=== PATIENT | male | born 1960 | race Caucasian/White ===

== ENCOUNTER 2022-10-25 17:48 | Emergency (ER) | payer BC, SELFPAY ==
[2022-10-25 17:56] VITALS: BP 159/83; PULSE 109; RESP 18; TEMP 38.3; O2SAT 95; BMI 31.4
--- NOTE | 2022-10-25 18:48 | DI.RAD.S_ITS ---
PROCEDURE: XR CHEST 2V INDICATIONS: congestion, fever TECHNIQUE: 2 views of the chest were acquired. COMPARISON: None. FINDINGS: Surgical changes and devices: None. Lungs and pleura: No consolidation identified. No pleural effusions or pneumothorax. Mediastinum: Mediastinal contours are normal. Heart size is normal. Bones and chest wall: No suspicious bony abnormalities. Soft tissues appear unremarkable. IMPRESSION: No acute cardiopulmonary abnormality identified. Dictated by: Davon August M.D. on 10/25/2022 at 19:43 Approved by: Davon August M.D. on 10/25/2022 at 19:43
--- NOTE | 2022-10-25 18:50 | ED_ITS ---
HPI - URI/Sore Throat <CIARRA Sommers Last Filed: 10/25/22 19:56> General Chief Complaint: Upper Respiratory Symptoms Stated Complaint: fever, upper resp. infection Time Seen by Provider: 10/25/22 17:53 Source: patient and family Mode of arrival: Ambulatory History of Present Illness HPI Narrative: the patient is a 62 yo male who is visiting family from out of state, currently resides in [place], who c/o fever, chills, not feeling good for the past 24 hours. Mainly due to fever his family wanted patient to be evaluated. Patient states he is not feeling all that bad, although he does have some body aches, some dry cough. He is eating and drinking just fine. Related Data Previous Rx's Medication Instructions Recorded oseltamivir 75 mg capsule (Tamiflu) 75 mg PO BID 5 days #10 caps 10/25/22 Allergies Allergy/AdvReac Type Severity Reaction Status Date / Time No Known Drug Allergies Allergy Verified 10/25/22 19:49 Review of Systems <CIARRA Sommers Last Filed: 10/25/22 19:56> Review of Systems Narrative: GENERAL: Admits to fever chills, fatigue, no night sweats. HEENT: Denies sinus pain, ear pain, admits some sore throat, no difficulty swallowing, dizziness. RESPIRATORY: Denies dyspnea, admits to some dry cough, denies wheezing, hemoptysis, sputum. CARDIOVASCULAR: Denies chest pain, palpitations, orthopnea, edema, GASTROINTESTINAL: Denies nausea, vomiting, abdominal pain, diarrhea, constipation, melena. : Denies dysuria, frequency, incontinence, hematuria, urinary retention. MUSCULOSKELETAL: Admits to body aches SKIN: Denies rash, skin lesions, or other NEUROLOGIC: Denies weakness, headache, numbness, change in speech, confusion, seizures, incoordination. PSYCHIATRIC: No concerning psychosocial issues. 12 point review of systems is negative except for those stated above Patient History <CIARRA Sommers Last Filed: 10/25/22 19:56> Social History Smoking Status: Never smoker Smoking Status: Never smoker alcohol intake frequency: a few times a week Substance Use Type: does not use Exam <CIARRA Sommers Last Filed: 10/25/22 19:56> Narrative Exam Narrative: GENERAL: 62 year old patient appears stated age. Well-developed patient, in no acute distress. HEAD: Atraumatic. Normocephalic. EYES: Pupils equal round and reactive. Extraocular motions intact. No scleral icterus. No injection or drainage. ENT: Nose without bleeding, purulent drainage. Throat with patchy erythema, there is no tonsillar hypertrophy or exudate. Airway patent. NECK: Trachea midline. Non tender CARDIOVASCULAR: Regular rate and rhythm without murmurs, gallops, or rubs. RESPIRATORY: Clear to auscultation. Breath sounds equal bilaterally. No wheezes, rales, or rhonchi. GASTROINTESTINAL: Abdomen soft, non-tender, nondistended. EXTREMITIES: No edema or joint tenderness. BACK: Nontender without deformity or crepitance. No flank tenderness. NEURO: AOx3. SKIN: No rash or erythema of visible areas Initial Vital Signs Initial Vital Signs: Vital Signs Temperature 100.9 F H 10/25/22 17:56 Pulse Rate 109 H 10/25/22 17:56 Respiratory Rate 18 10/25/22 17:56 Blood Pressure 159/83 H 10/25/22 17:56 Pulse Oximetry 95 10/25/22 17:56 Oxygen Delivery Method 10/25/22 17:56 <Lisa Sr MD - Last Filed: 10/25/22 22:44> Initial Vital Signs Initial Vital Signs: Vital Signs Temperature 100.9 F H 10/25/22 17:56 Pulse Rate 109 H 10/25/22 17:56 Respiratory Rate 18 10/25/22 17:56 Blood Pressure 159/83 H 10/25/22 17:56 Pulse Oximetry 95 10/25/22 17:56 Oxygen Delivery Method 10/25/22 17:56 Course <Joyce Lee PA-C - Last Filed: 10/25/22 19:56> Orders Ordered: ED Orders 10/25/22 16:00 Covid-19 + FLU A/B + RSV - PCR Stat 10/25/22 18:48 XR chest 2V Stat Vital Signs Vital signs: Vital Signs - 8 hr 10/25/22 17:56 10/25/22 19:59 Temperature 100.9 F H 99.9 F H Pulse Rate 109 H 100 H Respiratory Rate 18 18 Blood Pressure 159/83 H 146/88 H Pulse Oximetry 95 97 Oxygen Delivery Method Room Air Room Air <Lisa Sr MD - Last Filed: 10/25/22 22:44> Orders Ordered: ED Orders 10/25/22 16:00 Covid-19 + FLU A/B + RSV - PCR Stat 10/25/22 18:48 XR chest 2V Stat Vital Signs Vital signs: Vital Signs - 8 hr 10/25/22 17:56 10/25/22 19:59 Temperature 100.9 F H 99.9 F H Pulse Rate 109 H 100 H Respiratory Rate 18 18 Blood Pressure 159/83 H 146/88 H Pulse Oximetry 95 97 Oxygen Delivery Method Room Air Room Air MDM - URI/Sore Throat <Joyce Lee PA-C - Last Filed: 10/25/22 19:56> Lab Data Lab results narrative: Labs reviewed and showed positive influenza a, although patient is fully immunized Labs: Lab Results 10/25/22 Range/Units 16:00 SARS-CoV-2 (PCR) Negative (Negative) Influenza A (RT-PCR) Flu a positive H (NEGATIVE) Influenza B (RT-PCR) Flu b negative (NEGATIVE) RSV (PCR) Negative (Negative) Imaging Data Chest x-ray: Radiologist's Impression: IMPRESSION:? No acute cardiopulmonary abnormality identified. ? ? MDM Narrative Medical decision making narrative: Discussed with patient diagnosis and treatment Patient tested positive for influenza A, however his vital signs are stable, clinical he is stable at well. Advised to address Patient's symptoms such as fever with antipyretics. He may try Tamiflu, patient mentioned he had great success with this medication in the past. Findings and discharge diagnosis discussed with patient/family followed by verbalization of understanding Return precautions discussed with patient/family whom verbalize understanding. <Lisa Sr MD - Last Filed: 10/25/22 22:44> Lab Data Labs: Lab Results 10/25/22 Range/Units 16:00 SARS-CoV-2 (PCR) Negative (Negative) Influenza A (RT-PCR) Flu a positive H (NEGATIVE) Influenza B (RT-PCR) Flu b negative (NEGATIVE) RSV (PCR) Negative (Negative) Discharge Plan Departure Patient Disposition: Home Clinical Impression: Influenza Instructions: DI for Influenza -- Adult Activity Restrictions/Additional Instructions: *You have been diagnosed with influenza a *What to do: *Please continue to take your regular medications as directed. New medication prescriptions sent to your pharmacy: Tamiflu New medication written as a paper prescription Advised to take [id number] antipyretics such as Tylenol ibuprofen, decongestants. *Please follow up with your primary care provider as soon as you can, call for an appointment. Let them know you were seen in the Emergency Department and that we ask that you be seen in follow up. We will electronically transmit a record of today's note if your PCP is in our system *If you do not have a primary care provider please contact the [facility] Resource line at [phone]. They will ask some questions about your medical history and help get you set up with a doctor in the community. *Return to Emergency Department if you should have any new, worsening or concerning symptoms, such as worsening fever greater than 101 F, shaking chills, worsening pain, persistent vomiting or other bothersome symptoms. Prescriptions: New oseltamivir [Tamiflu] 75 mg capsule 75 mg PO BID 5 Days Qty: 10 0RF Referrals: Miscellaneous,DoctorMD [Primary Care Provider] - Visit Report Forms: Patient Portal/API <Lisa Sr MD - Last Filed: 10/25/22 22:44> Cosign ED Attending Cosignature Attestation: I was immediately available in the department for consultation throughout this patient's visit. I agree with documentation as above. Lisa Sr MD
[2022-10-25 18:53] LABS: Influenza A - CEPHEID Flu A POSITIVE (NEGATIVE); Influenza B - CEPHEID Flu B NEGATIVE (NEGATIVE); Respiratory Syncytial Virus Negative (Negative)
[2022-10-25 18:56] LABS: COVID-19 CEPHEID 4-PLEX PCR Negative (Negative)
[2022-10-25 19:59] VITALS: BP 146/88; PULSE 100; RESP 18; TEMP 37.7; O2SAT 97
== END 2022-10-25 20:00 | disposition home or self-care (01) ==
PROVIDERS: Emergency Provider Physician Assistant Medical
DX: J10.1 Influenza due to other identified influenza virus with other respiratory manifestations (principal); Z20.822 Contact with and (suspected) exposure to COVID-19
CPT/HCPCS: 0241U; 71046; 99281; 99283